=== PATIENT | male | born 1995 | race Caucasian/White ===

== ENCOUNTER 2020-05-22 14:37 | Emergency (ER) | payer OTHER ==
[2020-05-22] MEDS: Ketorolac 60 MG/2 ML SDV IM ONE (14:43)
[2020-05-22] MEDS: traMADol 50 MG Tab PO ONE (14:44)
--- NOTE | 2020-05-22 15:51 | EDM.PDOC ---
ED HPI GENERAL MEDICAL PROBLEM - General Chief Complaint: Lower Extremity Injury/Pain Stated Complaint: ankle deformity and pain Time Seen by Provider: 05/22/20 15:00 Source of Information: Reports: Patient History Limitations: Reports: No Limitations - History of Present Illness INITIAL COMMENTS - FREE TEXT/NARRATIVE: Patient jumped down approx 3 feet to floor while working at [employer] and rolled right ankle. Unable to bear weight. Swollen lateral ankle. No numbness/tingling. No other reported injury. Popping noise when ankle rolled. 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(s) - Related Data Allergies Allergy/AdvReac Type Severity Reaction Status Date / Time No Known Allergies Allergy Verified 05/22/20 14:37 Home Meds: Home Meds traMADol HCl [Tramadol HCl] 50 mg PO Q6H PRN #15 tablet 05/22/20 [Rx] Past Medical History - Past Health History Medical/Surgical History: Denies Medical/Surgical History Review of Systems - Review of Systems Review Of Systems: See Below Musculoskeletal: Reports: Other (right ankle pain and swelling) ED EXAM, GENERAL - Physical Exam Exam: See Below Exam Limited By: No Limitations General Appearance: Alert, WD/WN, No Apparent Distress Eye Exam: Bilateral Eye: EOMI, PERRL Ears: Hearing Grossly Normal Nose: No: Nasal Deformity, Nasal Swelling, Nasal Drainage Throat/Mouth: Normal Voice, No Airway Compromise Head: Atraumatic, Normocephalic Neck: Supple Peripheral Pulses: 2+: Dorsalis Pedis (R) Extremities: Other (Tender to palpation lateral malleolus right ankle/swelling. Able to wiggle toes. Limited ankle ROM due to pain when he attempted to move it. No bruising. Skin intact. ) Neurological: Alert, Oriented, Normal Cognition Psychiatric: Normal Affect, Normal Mood Skin Exam: Warm, Dry, Intact, Normal Color ED TRAUMA EXTREMITY PROCEDURES - Splinting Right Lower Extremity Splint Site: right ankle Pre-Procedure NV Status: Normal Post-Procedure NV Status: Normal Splint Material: Fiberglass Splint Design: Posterior Applied & Form Fitted By: Provider Provider Post-Splint Application NV Check: NV Status Normal, Good Position Complications: No Course - Vital Signs Last Recorded V/S: Last Vital Signs Temp 37.0 C 05/22/20 14:40 Pulse 78 05/22/20 14:40 Resp 18 05/22/20 14:40 BP 128/75 05/22/20 14:40 Pulse Ox 100 05/22/20 14:40 - Orders/Labs/Meds Orders: Active Orders 24 hr Category Date Time Status Ankle Min 3V Rt [CR] Stat Exams 05/22/20 14:40 Taken Meds: Medications Discontinued Medications Generic Name Dose Route Start Last Admin Trade Name Freq PRN Reason Stop Dose Admin Ketorolac Tromethamine 60 mg 05/22/20 14:39 05/22/20 14:43 Toradol IM 05/22/20 14:40 60 mg ONETIME ONE Administration Tramadol HCl 100 mg 05/22/20 14:38 05/22/20 14:44 Ultram PO 05/22/20 14:39 100 mg ONETIME ONE Administration - Re-Assessments/Exams Free Text/Narrative Re-Assessment/Exam: 05/22/20 17:22 No obvious fracture noted on plain films. Splinted for comfort. Patient refused crutches. Will place patient off work for rest of week. To get rechecked Mo morning at primary care clinic. Further imaging/restrictions as needed depending on how the joint is doing that day. Rx for 15 Tramadol PRN dispensed. Otherwise recommend Tylenol or Ibuprofen for pain. Pending formal Radiology review. Will contact patient if Radiologist has any concerns. Departure - Departure Time of Disposition: 15:49 Disposition: Home, Self-Care 01 Condition: Good Clinical Impression: Right ankle injury Qualifiers: Encounter type: initial encounter Qualified Code(s): S99.911A - Unspecified injury of right ankle, initial encounter - Discharge Information *PRESCRIPTION DRUG MONITORING PROGRAM REVIEWED*: Not Applicable *COPY OF PRESCRIPTION DRUG MONITORING REPORT IN PATIENT NEDA: Not Applicable Prescriptions: traMADol HCl [Tramadol HCl] 50 mg PO Q6H PRN #15 tablet PRN Reason: Pain Referrals: PCP,Not In Area [Primary Care Provider] - Forms: ED Department Discharge Additional Instructions: Take it easy. Avoid weight bearing for 48 hours. Advance activity as tolerated over weekend. Follow up at clinic Wednesday for recheck and clearance to work if you are doing well. You may need additional imaging studies/further restrictions as we discussed if you continue to have problems/pain. OK to take Tylenol and/or ibuprofen along with the Tramadol to help with pain. Sepsis Event Note (ED) - Evaluation Sepsis Screening Result: No Definite Risk - Focused Exam Vital Signs: Vital Signs Temp Pulse Resp BP Pulse Ox 05/22/20 14:40 37.0 C 78 18 128/75 100 - My Orders Last 24 Hours: My Active Orders 05/22/20 14:40 Ankle Min 3V Rt [CR] Stat - Assessment/Plan Last 24 Hours: My Active Orders 05/22/20 14:40 Ankle Min 3V Rt [CR] Stat
== END 2020-05-22 16:00 | disposition home or self-care (01) ==
LOC: LL.ED 14:37
DX: S89.91XA Unspecified injury of right lower leg, initial encounter (principal); X50.1XXA Overexertion from prolonged static or awkward postures, initial encounter; Y92.89 Other specified places as the place of occurrence of the external cause; Y99.0 Civilian activity done for income or pay
CPT/HCPCS: 29515; 73610-RT; 96372; 99283-25; A9270-GY; J1885